=== PATIENT | female | born 1955 | race Hispanic/Latino ===

== ENCOUNTER 2019-11-01 13:07 | Outpatient (CLI) | payer MEDICARE ==
--- NOTE | 2019-11-01 14:37 | MMO ---
Bilateral MAMMO Bilat Diag [facility]. CLINICAL HISTORY: Patient is 64 years old and is seen for diagnostic exam and pain in the left breast. The patient has the following family history of breast cancer: cousin female. The patient has no personal history of cancer. The patient has a history of left Ultrasound Guided Core Biopsy - benign. VIEWS: The views performed were: bilateral craniocaudal with tomosynthesis; bilateral mediolateral oblique with tomosynthesis; and bilateral mediolateral with tomosynthesis. FILMS COMPARED: The present examination has been compared to prior imaging studies performed at [facility] on 07/27/2013, 08/01/2013, 07/17/2015 and 11/01/2019. This study has been interpreted with the assistance of computer-aided detection. MAMMOGRAM FINDINGS: There are scattered fibroglandular densities. Benign calcifications are noted bilaterally. NO sono or mammo abnormality at 10:00 left breast (pain) There are no suspicious masses, suspicious calcifications, or new areas of architectural distortion. IMPRESSION: THERE IS NO MAMMOGRAPHIC EVIDENCE OF MALIGNANCY. A ROUTINE FOLLOW-UP MAMMOGRAM IN 1 YEAR IS RECOMMENDED. THE RESULTS OF THIS EXAM WERE SENT TO THE PATIENT. ACR BI-RADS Category 2 - Benign finding MAMMOGRAPHY NOTE: 1. A negative mammogram report should not delay a biopsy if a dominant of clinically suspicious mass is present. 2. Approximately 10% to 15% of breast cancers are not detected by mammography. 3. Adenosis and dense breasts may obscure an underlying neoplasm. Reported by: JESSICA SAXENA MD Electonically Signed: [id number]
--- NOTE | 2019-11-01 14:44 | ULT ---
LEFT BREAST ULTRASOUND: HISTORY: Left breast pain at 10 o'clock position. FINDINGS: Correlation is made with mammogram of the same date. Sonographic evaluation at the 10 o'clock position of the left breast (at the site of pain) about 10 c m from the nipple demonstrates no abnormality. IMPRESSION: BIRADS category 2 - benign findings. Return to annual mammographic screening. POS: OFF
== END 2019-11-01 13:08 | disposition home or self-care (01) ==
LOC: BICMAMMO 13:07
PROVIDERS: ATTEND Specialist
DX: N63.0 Unspecified lump in unspecified breast (principal)
CPT/HCPCS: 76642; 77066; G0279

== ENCOUNTER 2020-02-22 10:32 | Outpatient (CLI) | payer MEDICARE ==
--- NOTE | 2020-02-22 13:29 | MRI ---
MRI OF THE LEFT KNEE WITHOUT CONTRAST: 02/22/20 HISTORY: Pain. COMPARISON: Radiograph 10/04/19. FINDINGS: MEDIAL MENISCUS: Full thickness radial tear posterior horn medial meniscus at the root with a 4 mm gap. There is 3-4 m m medial gutter extrusion medial meniscal body. There is undersurface flap component extending into t he posterior horn and posterior horn/body junction. Moderate intrameniscal degeneration of the medial meniscal body. LATERAL MENISCUS: Intact. ACL, PCL, MCL and LCL are intact. EXTENSOR MECHANISM: The quadriceps tendon, patella and patellar tendon are intact. CARTILAGE: Patellofemoral compartment: Mild chondral fraying. No full thickness defect. Medial compartment: Cartilage denuding along the central weightbearing surface of the medial femoral condyle medial to th e plateau. Early subcortical reactive marrow change. Lateral compartment: Low grade fraying. SOFT TISSUES: Moderate popliteal cyst without dehiscence. Small joint effusion. MUSCLES: Muscle signal and bulk is normal. BONES: No fracture. No malalignment. Large medial compartment osteophyte formation. IMPRESSION: 1. Full thickness radial tear of the posterior root medial meniscus with undersurface flap exten adria seen along the body and posterior horn. There is 3 to 4 mm medial gutter extrusion. 2. Small ovoid calcified body at the medial meniscal root tear measuring 5 x 4 x 3 mm. Loss of h oop stress in medial compartment with cartilage denuding and large osteophyte formation. 3. Intact lateral meniscus without tear. 4. 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 5. Moderate popliteal cyst without dehiscence. POS: HOME
== END 2020-02-22 10:33 | disposition home or self-care (01) ==
LOC: EDSEX → BICMRI 10:32
PROVIDERS: ATTEND Orthopaedic Surgery
DX: M17.12 Unilateral primary osteoarthritis, left knee (principal); S83.242A Other tear of medial meniscus, current injury, left knee, initial encounter; M22.42 Chondromalacia patellae, left knee; M71.22 Synovial cyst of popliteal space [Baker], left knee; M25.762 Osteophyte, left knee

== ENCOUNTER 2020-12-09 13:03 | Outpatient (CLI) | payer MEDICARE | END 2020-12-09 13:04 | disposition home or self-care (01) | LOC: EDSEX → BICMAMMO 13:03 | PROVIDERS: ATTEND Specialist | DX: Z12.31 Encounter for screening mammogram for malignant neoplasm of breast (principal); M81.0 Age-related osteoporosis without current pathological fracture; M85.851 Other specified disorders of bone density and structure, right thigh; M85.852 Other specified disorders of bone density and structure, left thigh; Z80.3 Family history of malignant neoplasm of breast; Z91.89 Other specified personal risk factors, not elsewhere classified | CPT/HCPCS: 77063; 77067; 77080 ==

== ENCOUNTER 2021-02-10 08:31 | Outpatient (CLI) | payer MEDICARE | END 2021-02-10 08:32 | disposition home or self-care (01) | LOC: BICMRI 08:31 | PROVIDERS: ATTEND Orthopaedic Surgery | DX: M23.92 Unspecified internal derangement of left knee (principal); S83.242A Other tear of medial meniscus, current injury, left knee, initial encounter; M25.462 Effusion, left knee; M71.22 Synovial cyst of popliteal space [Baker], left knee; M22.2X2 Patellofemoral disorders, left knee ==

== ENCOUNTER 2021-10-29 09:08 | Outpatient (CLI) | payer MEDICARE | END 2021-10-29 09:09 | disposition home or self-care (01) | LOC: RAD 09:08 | PROVIDERS: ATTEND Internal Medicine Critical Care Medicine | DX: R06.00 Dyspnea, unspecified (principal) | CPT/HCPCS: 71046 ==

== ENCOUNTER 2022-04-06 08:52 | Outpatient (CLI) | payer MEDICARE | END 2022-04-06 08:53 | disposition home or self-care (01) | LOC: BICMAMMO 08:52 | PROVIDERS: ATTEND Specialist | DX: Z12.31 Encounter for screening mammogram for malignant neoplasm of breast (principal); M85.89 Other specified disorders of bone density and structure, multiple sites; M81.0 Age-related osteoporosis without current pathological fracture; R92.1 Mammographic calcification found on diagnostic imaging of breast; Z91.89 Other specified personal risk factors, not elsewhere classified | CPT/HCPCS: 77063; 77067; 77080 ==

== ENCOUNTER 2022-04-08 13:01 | Outpatient (CLI) | payer MEDICARE | END 2022-04-08 13:02 | disposition home or self-care (01) | LOC: BICMAMMO 13:01 | PROVIDERS: ATTEND Specialist | DX: R92.8 Other abnormal and inconclusive findings on diagnostic imaging of breast (principal) | CPT/HCPCS: 77065; G0279 ==

== ENCOUNTER → 2022-04-30 | Day surgery (SDC) | payer MEDICARE | END | disposition home or self-care (01) | LOC: MAMMO 06:43 | PROVIDERS: ATTEND Specialist | PROC: 0H9U3ZX Drainage of Left Breast, Percutaneous Approach, Diagnostic (ICD-10-PCS; principal; 2022-04-30) | DX: D05.12 Intraductal carcinoma in situ of left breast (principal) | CPT/HCPCS: 19081; 76098; 88305 ==

== ENCOUNTER 2022-05-26 09:45 | Outpatient (CLI) | payer MEDICARE ==
[2022-05-26 10:42] LABS: #Eosinphils 0.1 10x3/uL (0.0-0.5); #Monocytes 0.4 10x3/uL (0.0-1.1); #Neutrophils 2.8 10x3/uL (1.5-8.4); %Basophils 0.4 % (0.0-2.0); %Eosinophils 2.6 % (0.0-6.0); %Monocytes 7.3 % (0.0-10.0); %Neutrophils 51.7 % (40.0-75.0); Hemoglobin 13.5 g/dL (12.0-15.5); Mean Corpuscular Hemoglobin 30.2 pg (27.0-33.0); Mean Corpuscular Volume 88.8 fl (81.6-98.3); Mean Platelet Volume 9.6 fl (7.4-10.4); Platelet Count 245 10x3/uL (150-450); RBC Distribution Width 13.5 % (11.5-14.5); Red Blood Cell (RBC) Count 4.47 10x6/uL (3.90-5.03); White Blood Cell (WBC) Count 5.3 10x3/uL (3.5-10.5)
[2022-05-26 10:55] LABS: Anion Gap 13 mmol/L (10-20); BUN (Urea Nitrogen) 15 mg/dL (9.8-20.1); Calc. Creatinine Clearance 0 mL/min (70-130); Calcium 9.8 mg/dL (7.8-10.44); Carbon Dioxide 25 mmol/L (23-31); Chloride 107 mmol/L (98-107); Estimated GFR 95; Glucose 109 mg/dL (80-115); Potassium 4.8 mmol/L (3.5-5.1); Sodium 140 mmol/L (136-145)
== END 2022-05-26 09:46 | disposition home or self-care (01) ==
LOC: LABBT 09:45
PROVIDERS: ATTEND Surgery
DX: Z01.818 Encounter for other preprocedural examination (principal); C50.912 Malignant neoplasm of unspecified site of left female breast; Z20.822 Contact with and (suspected) exposure to COVID-19
CPT/HCPCS: 80048; 85025; 87811; 93005; 93010

== ENCOUNTER 2022-05-31 06:40 | Day surgery (SDC) | payer MEDICARE ==
[2022-05-28 09:40] VITALS: BMI 35.2
[2022-05-31] MEDS ORDERED: Famotidine/PF 20 mg/2ml Vial ONE (11:01)
[2022-05-31] MEDS ORDERED: fentaNYL Citrate/PF 100 MCG/2 ML SYRINGE ONE (12:08)
[2022-05-31] MEDS ORDERED: Lidocaine 2% PF 5 ML VIAL ONE (12:20)
[2022-05-31] MEDS ORDERED: Methylene Blue 50 MG/10 ML AMPUL ONE (12:20)
[2022-05-31] MEDS ORDERED: Bupivacaine/Epinephrine 0.25% 30 ML VIAL ONE (12:20)
[2022-05-31] MEDS ORDERED: Sodium Chloride 0.9% 100 ML ONE (12:33)
[2022-05-31] MEDS ORDERED: CEFAZOLIN 2 GM VIAL ONE (12:33)
[2022-05-31] MEDS ORDERED: Ondansetron PF 4 MG/2 ML Vial ONE (12:54)
[2022-05-31] MEDS ORDERED: PROPOFOL 200 MG/20 ML VIAL ONE (12:54)
[2022-05-31] MEDS ORDERED: Ketorolac Tromethamine 30 MG/ML VIAL ONE (12:54)
[2022-05-31] MEDS ORDERED: ePHEDrine 50 MG/ML VIAL ONE (12:54)
[2022-05-31] MEDS ORDERED: Dexamethasone 20 MG/5 ML VIAL ONE (12:54)
[2022-05-31] MEDS ORDERED: Lidocaine 1% MPF 2 ML VIAL ONE (12:54)
[2022-05-31] MEDS ORDERED: Levofloxacin 500 mg/D5W 100 ml Premix Bag ONE (13:02)
== END 2022-05-31 15:00 | disposition home or self-care (01) ==
LOC: SDC 06:40
PROVIDERS: ATTEND Surgery
PROC: 0HBU0ZZ Excision of Left Breast, Open Approach (ICD-10-PCS; principal; 2022-05-31)
PROC: 07B60ZX Excision of Left Axillary Lymphatic, Open Approach, Diagnostic (ICD-10-PCS; 2022-05-31)
DX: D05.12 Intraductal carcinoma in situ of left breast (principal); J45.909 Unspecified asthma, uncomplicated; I11.9 Hypertensive heart disease without heart failure; Z79.82 Long term (current) use of aspirin; Z79.899 Other long term (current) drug therapy; Z88.1 Allergy status to other antibiotic agents
CPT/HCPCS: 19281; 19301; 38525; 38900; 76098; 78195; A9541; Q9968; 88307; 88342; J0690; J1100; J1885; J1956; J2001; J2405; J2704; J3490; S0028

== ENCOUNTER 2023-05-03 13:19 | Outpatient (CLI) | payer MEDICARE | END 2023-05-03 13:20 | disposition home or self-care (01) | LOC: BICMAMMO 13:19 | PROVIDERS: ATTEND Nurse Practitioner Family | DX: M81.8 Other osteoporosis without current pathological fracture (principal); D05.12 Intraductal carcinoma in situ of left breast; M85.851 Other specified disorders of bone density and structure, right thigh; M85.852 Other specified disorders of bone density and structure, left thigh | CPT/HCPCS: 77066; 77080; G0279 ==

== ENCOUNTER 2023-05-25 09:43 | Outpatient (CLI) | payer MEDICARE | END 2023-05-25 09:44 | disposition home or self-care (01) | LOC: LABBT 09:43 | PROVIDERS: ATTEND Orthopaedic Surgery | DX: Z01.818 Encounter for other preprocedural examination (principal); M17.0 Bilateral primary osteoarthritis of knee | CPT/HCPCS: 71046; 93005; 93010 ==

== ENCOUNTER 2023-05-30 05:34 | Observation (INO) | payer MEDICARE ==
[2023-05-25 11:04] VITALS: BMI 35.2
[2023-05-25 11:36] LABS: Bilirubin Neg (Negative); Blood, Urine 10 (Negative); Clarity Clear (Clear); Glucose, Urine (Dipstick) Normal (Negative); Ketone, Urine Negative (Negative); Leukocyte Negative (Negative); Nitrite Negative (Negative); Protein, Urine (Dipstick) 15 mg/dl (Neg-Trace); Specific Gravity, Urine 1.025 (1.005-1.030); Urobilinogen Normal mg/dL (Less than 2)
[2023-05-25 11:47] LABS: #Eosinphils 0.1 10x3/uL (0.0-0.5); #Monocytes 0.3 10x3/uL (0.0-1.1); #Neutrophils 2.6 10x3/uL (1.5-8.4); %Basophils 0.7 % (0.0-2.0); %Eosinophils 1.6 % (0.0-6.0); %Lymphocytes 29.8 % (18.0-47.0); %Monocytes 7.7 % (0.0-10.0); Hematocrit 40.2 % (34.9-44.5); Hemoglobin 13.1 g/dL (12.0-15.5); Mean Corpuscular HGB CONC 32.6 g/dL (32.0-36.0); Mean Corpuscular Hemoglobin 30.4 pg (27.0-33.0); Mean Corpuscular Volume 93.3 fl (81.6-98.3); Mean Platelet Volume 9.8 fl (7.4-10.4); Platelet Count 209 10x3/uL (150-450); RBC Distribution Width 13.1 % (11.5-14.5); Red Blood Cell (RBC) Count 4.31 10x6/uL (3.90-5.03); White Blood Cell (WBC) Count 4.3 10x3/uL (3.5-10.5)
[2023-05-25 12:06] LABS: Anion Gap 13 mmol/L (10-20); BUN (Urea Nitrogen) 16 mg/dL (9.8-20.1); Calc. Creatinine Clearance 0 mL/min (70-130); Calcium 8.6 mg/dL (7.8-10.44); Carbon Dioxide 21 mmol/L (23-31); Chloride 110 mmol/L (98-107); Estimated GFR 95; Glucose 98 mg/dL (80-115); Potassium 4.2 mmol/L (3.5-5.1); Sodium 140 mmol/L (136-145)
[2023-05-25 12:41] LABS: INR-International Normal Ratio 0.9; Prothrombin Time 9.6 sec (9.5-12.1)
[2023-05-30] MEDS ORDERED: Tranexamic Acid 1,000 MG/10 ML VIAL ONE ×2 (06:12→09:53)
[2023-05-30] MEDS ORDERED: Vancomycin (BATCH) 1.5 GM/300 ML BAG ONE (06:12)
[2023-05-30] MEDS ORDERED: Sodium Chloride 0.9% 100 ML ONE (06:12)
[2023-05-30] MEDS ORDERED: Bupivacaine 0.25% HCL 30 ML VIAL ONE (06:25)
[2023-05-30] MEDS ORDERED: methylPREDNISolone Acetate 40 mg/ml Vial ONE (06:25)
[2023-05-30] MEDS ORDERED: Lidocaine 1% (PF) 30 ML VIAL ONE ×2 (06:25→07:25)
[2023-05-30] MEDS ORDERED: fentaNYL 50 mcg/mL 1 mL Vial ONE ×2 (06:29→08:07)
[2023-05-30] MEDS ORDERED: Midazolam HCl 2 mg/2 ml Vial ONE (06:29)
[2023-05-30] MEDS ORDERED: Ketorolac Tromethamine 30 MG/ML VIAL ONE (06:44)
[2023-05-30] MEDS ORDERED: Ondansetron PF 4 MG/2 ML Vial ONE (06:44)
[2023-05-30] MEDS ORDERED: Dexamethasone 20 MG/5 ML VIAL ONE (06:44)
[2023-05-30] MEDS ORDERED: ePHEDrine Sulfate 50 MG/10 ML VIAL ONE (06:44)
[2023-05-30] MEDS ORDERED: PROPOFOL 200 MG/20 ML VIAL ONE (06:44)
[2023-05-30] MEDS ORDERED: Lidocaine 1% PF 5 ML VIAL ONE (06:44)
[2023-05-30] MEDS ORDERED: Clindamycin/D5W 600 mg/50 ml Premix Bag ONE (06:54)
[2023-05-30] MEDS ORDERED: fentaNYL 50 mcg/mL 1 mL Vial SLOW IVP PRN ×2 (07:08→09:42)
[2023-05-30] MEDS ORDERED: traMADol HCl 50 MG TAB PO PRN ×2 (07:15)
[2023-05-30] MEDS ORDERED: Ondansetron PF 4 MG/2 ML Vial IVP PRN ×2 (07:15→09:42)
[2023-05-30] MEDS ORDERED: Zolpidem Tartrate 5 MG TAB PO PRN ×2 (07:15→09:42)
[2023-05-30] MEDS ORDERED: Ropivacaine 0.2% 550 ML 550 ML NERVE BLCK SCH (07:15)
[2023-05-30] MEDS ORDERED: Promethazine HCl 25 MG/ML VIAL IM PRN ×3 (07:15→09:42)
[2023-05-30] MEDS ORDERED: HYDROcodone/Acetaminophen 10/325 mg Tablet PO PRN ×4 (07:15→09:42)
[2023-05-30] MEDS ORDERED: EPINEPHrine 1 MG/ML AMP ONE (07:25)
[2023-05-30] MEDS ORDERED: Bupivacaine PF 0.5% 30 ML VIAL ONE (07:25)
[2023-05-30] MEDS ORDERED: Ondansetron HCl/PF 4 MG/2 ML Vial IVP PRN (09:16)
[2023-05-30] MEDS ORDERED: PACU-Morphine 4MG/ML VIAL SLOW IVP PRN (09:16)
[2023-05-30] MEDS ORDERED: HYDROmorphone 2 MG/ML VIAL SLOW IVP PRN (09:16)
[2023-05-30] MEDS ORDERED: diphenhydrAMINE 25 MG CAP PO PRN (09:42)
[2023-05-30] MEDS ORDERED: Acetaminophen 325 MG TAB PO PRN (09:42)
[2023-05-30] MEDS ORDERED: Vancomycin 1.5 GM in Sodium Chloride 0.9% 250 ML 300 ML IVPB SCH (09:45)
[2023-05-30] MEDS ORDERED: Vancomycin (BATCH) 1.5 GM in Premix 1 BAG IVPB SCH (10:00)
[2023-05-30] MEDS ORDERED: Tranexamic Acid 1,000 MG in Sodium Chloride 0.9% 100 ML IVPB SCH (10:00)
[2023-05-30] MEDS: Ketorolac Tromethamine 30 MG/ML VIAL IVP SCH ×2 (13:16→18:16)
[2023-05-30] MEDS: CEFAZOLIN 2 GM in Sodium Chloride 0.9% 100 ML IVPB SCH ×2 (15:58→21:07)
[2023-05-30] MEDS: Aspirin 81 mg Enteric Coated Tablet PO SCH (21:07)
[2023-05-31] MEDS: Ketorolac Tromethamine 30 MG/ML VIAL IVP SCH ×2 (00:40→06:05)
[2023-05-31 06:31] LABS: Hematocrit 34.3 % (36.0-47.0); Mean Corpuscular HGB CONC 32.1 g/dL (32.0-36.0); Mean Corpuscular Volume 96.6 fl (78.0-98.0); Mean Platelet Volume 10.1 fL (7.4-10.4); Platelet Count 172 10x3/uL (130-400); RBC Distribution Width 13.2 % (11.5-14.5); Red Blood Cell (RBC) Count 3.55 mill/uL (4.20-5.40); White Blood Cell (WBC) Count 11.5 10x3/uL (4.8-10.8)
[2023-05-31] MEDS ORDERED: Multivitamin W/ Minerals 1 TAB PO SCH (09:00)
[2023-05-31] MEDS ORDERED: Senokot S 8.6-50 MG TAB PO SCH (09:00)
[2023-05-31] MEDS ORDERED: Ferrous Gluconate 324 MG TAB PO SCH (09:00)
[2023-05-31] MEDS: Aspirin 81 mg Enteric Coated Tablet PO SCH (09:29)
[2023-05-31 12:19] VITALS: BP 126/60; TEMP 98.7
== END 2023-05-31 12:53 | disposition home or self-care (01) ==
LOC: SDC 05:34 → SURG B 09:42
PROVIDERS: ADMIT Orthopaedic Surgery; ATTEND Orthopaedic Surgery
PROC: 0SRD0JZ Replacement of Left Knee Joint with Synthetic Substitute, Open Approach (ICD-10-PCS; principal; 2023-05-30)
PROC: 0S9C30Z Drainage of Right Knee Joint with Drainage Device, Percutaneous Approach (ICD-10-PCS; 2023-05-30)
DX: M17.0 Bilateral primary osteoarthritis of knee (principal); M23.92 Unspecified internal derangement of left knee; J45.909 Unspecified asthma, uncomplicated; R12 Heartburn; R00.9 Unspecified abnormalities of heart beat; I11.9 Hypertensive heart disease without heart failure; Z79.82 Long term (current) use of aspirin; Z98.890 Other specified postprocedural states; Z88.1 Allergy status to other antibiotic agents; Z79.899 Other long term (current) drug therapy
CPT/HCPCS: 27447; 85027; 97110; 97116 ×2; 97530; A4306; C1776; J3010; J3370; 36415; 80048; 81003; 85025; 85610; 86850; 86900; 86901; 87081; J0171; J1030; J1100; J1885; J2001; J2250; J2405; J2704; J2795; J3490; S0020

== ENCOUNTER 2024-05-09 08:37 | Outpatient (CLI) | payer MEDICARE | END 2024-05-09 08:38 | disposition home or self-care (01) | LOC: BICMAMMO 08:37 | PROVIDERS: ATTEND Internal Medicine Hematology & Oncology | DX: Z08 Encounter for follow-up examination after completed treatment for malignant neoplasm (principal); R92.1 Mammographic calcification found on diagnostic imaging of breast; Z85.3 Personal history of malignant neoplasm of breast | CPT/HCPCS: 77066; G0279 ==

== ENCOUNTER 2024-06-15 08:40 | Outpatient (CLI) | payer MEDICARE ==
[2024-06-15 09:41] LABS: #Basophils 0.04 10x3/uL (0.0-0.2); %Basophils 0.8 % (0.0-1.0); %Eosinophils 2.6 % (0.0-10.0); %Lymphocytes 33.3 % (21.0-51.0); %Monocytes 8.3 % (0.0-10.0); %Neutrophils 54.8 % (42.0-75.0); Hematocrit 41.9 % (36.0-47.0); Hemoglobin 13.7 g/dL (12.0-16.0); Mean Corpuscular HGB CONC 32.7 g/dL (32.0-36.0); Mean Corpuscular Hemoglobin 30.7 pg (27.0-31.0); Mean Corpuscular Volume 93.9 fL (78.0-98.0); Mean Platelet Volume 9.6 fL (7.4-10.4); Platelet Count 231 10x3/uL (130-400); RBC Distribution Width 13.2 % (11.5-14.5); Red Blood Cell (RBC) Count 4.46 mill/uL (4.20-5.40)
[2024-06-15 10:01] LABS: Anion Gap 14 mmol/L (10-20); BUN (Urea Nitrogen) 19 mg/dL (9.8-20.1); Calc. Creatinine Clearance 0 mL/min (70-130); Calcium 9.1 mg/dL (7.8-10.44); Carbon Dioxide 23 mmol/L (23-31); Chloride 106 mmol/L (98-107); Estimated GFR 94; Glucose 106 mg/dL (80-115); Potassium 4.1 mmol/L (3.5-5.1); Sodium 139 mmol/L (136-145)
== END 2024-06-15 08:41 | disposition home or self-care (01) ==
LOC: LABBT 08:40
PROVIDERS: ATTEND Surgery
DX: Z01.818 Encounter for other preprocedural examination (principal); N63.20 Unspecified lump in the left breast, unspecified quadrant
CPT/HCPCS: 80048; 85025; 93005; 93010

== ENCOUNTER 2024-06-19 07:06 | Day surgery (SDC) | payer MEDICARE ==
[2024-06-15 09:19] VITALS: BMI 34.2
[2024-06-19] MEDS ORDERED: Bupivacaine 0.25% HCL 30 ML VIAL ONE (10:04)
[2024-06-19] MEDS ORDERED: EPINEPHrine 1 MG/ML VIAL ONE (10:04)
[2024-06-19] MEDS ORDERED: fentaNYL 50 mcg/mL 1 mL Vial ONE (10:13)
[2024-06-19] MEDS ORDERED: Lidocaine 1% PF 5 ML VIAL ONE (10:13)
[2024-06-19] MEDS ORDERED: PROPOFOL 20 ML ONE (10:13)
[2024-06-19] MEDS ORDERED: LevoFLOXacin D5W 500 mg (100 mL) BAG ONE (10:19)
[2024-06-19] MEDS ORDERED: ePHEDrine Sulfate 50 MG/10 ML VIAL ONE (10:38)
[2024-06-19] MEDS ORDERED: Ondansetron PF 4 MG/2 ML Vial ONE ×2 (10:39→11:06)
[2024-06-19] MEDS ORDERED: Dexamethasone 20 MG/5 ML VIAL ONE ×2 (10:39→11:06)
[2024-06-19] MEDS ORDERED: Ketorolac Tromethamine 30 MG (1 mL) VIAL ONE (11:06)
[2024-06-19] MEDS ORDERED: HYDROcodone/Acetaminophen 5/325 mg Tablet ONE (12:48)
== END 2024-06-19 13:30 | disposition home or self-care (01) ==
LOC: SDC 07:06
PROVIDERS: ATTEND Surgery
PROC: 0HB5XZX Excision of Chest Skin, External Approach, Diagnostic (ICD-10-PCS; principal; 2024-06-19)
DX: N63.21 Unspecified lump in the left breast, upper outer quadrant (principal); N64.1 Fat necrosis of breast; N60.32 Fibrosclerosis of left breast; R92.1 Mammographic calcification found on diagnostic imaging of breast
CPT/HCPCS: 19120; 19281; 76098; J0171; J0665; J1100; J1885; J1956; J2405; J2704; J3010; 88307; A4648

== ENCOUNTER 2025-06-07 11:33 | Outpatient (CLI) | payer OTHER | END 2025-06-07 11:34 | disposition home or self-care (01) | LOC: SCSBT 11:33 | PROVIDERS: ATTEND Specialist | DX: M81.8 Other osteoporosis without current pathological fracture (principal); D05.12 Intraductal carcinoma in situ of left breast; R30.0 Dysuria; M85.89 Other specified disorders of bone density and structure, multiple sites | CPT/HCPCS: 77080 ==